=== PATIENT | female | born 1980 | race American Indian/Alaskan Native ===

== ENCOUNTER 2018-02-06 14:24 | Emergency (ER) | payer MEDICAID ==
[2018-02-06 14:26] VITALS: RESP 18; BMI 33.4
[2018-02-06] MEDS ORDERED: Sodium Chloride 0.9% 1,000 ML IV STA (14:48)
--- NOTE | 2018-02-06 14:58 | ED PDOC ---
Arrival/HPI - General Chief Complaint: Female Genitourinary Time Seen by Provider: 02/06/18 14:25 Historian: Patient - History of Present Illness Narrative History of Present Illness (Text): 02/06/18 14:53 37yo female who present with complaint of crampy abdominal pain and vaginal bleeding x since this morning. States her LMP was December 17 2017. States her home test was inconclusive on Monday. Started having vaginal bleeding this morning. States she came to Emergency department today because she started having cramps, which is unusual with her menstruation. Denies nausea, vomiting, diarrhea, constipation, urinary symptoms, fever, chills, back pain, any other complaint. Past Medical History - Provider Review Nursing Documentation Reviewed: Yes - Psychiatric Hx Substance Use: No Family/Social History - Physician Review Nursing Documentation Reviewed: Yes Family/Social History: Unknown Family HX Smoking Status: Never Smoked Hx Alcohol Use: Yes Frequency of alcohol use: Socially Hx Substance Use: No Allergies/Home Meds Allergies/Adverse Reactions: Allergies No Known Allergies Allergy (Verified 02/06/18 14:34) Home Medications: Home Meds Medication Instructions Recorded Confirmed RX: No Known Home Med 02/06/18 02/06/18 Review of Systems - Physician Review All systems were reviewed & negative as marked: Yes - Review of Systems Constitutional: Normal Eyes: Normal ENT: Normal Respiratory: Normal Cardiovascular: Normal Gastrointestinal: Abdominal Pain. absent: Stool Changes, Constipation, Diarrhea, Nausea, Hematochezia, Hematemesis Genitourinary Female: Normal Musculoskeletal: Normal Skin: Normal Neurological: Normal Endocrine: Normal Hemo/Lymphatic: Normal Psychiatric: Normal Physical Exam Vital Signs Reviewed: Yes Vital Signs Temp Pulse Resp BP Pulse Ox 02/06/18 14:25 98.3 F 82 18 149/92 H 100 Temperature: Afebrile Blood Pressure: Normal Pulse: Regular Respiratory Rate: Normal Appearance: Positive for: Well-Appearing, Non-Toxic, Comfortable Pain Distress: None Mental Status: Positive for: Alert and Oriented X 3 - Systems Exam Head: Present: Atraumatic, Normocephalic Pupils: Present: PERRL Extroacular Muscles: Present: EOMI Conjunctiva: Present: Normal Mouth: Present: Moist Mucous Membranes Neck: Present: Normal Range of Motion Respiratory/Chest: Present: Clear to Auscultation, Good Air Exchange. No: Respiratory Distress, Accessory Muscle Use Cardiovascular: Present: Regular Rate and Rhythm, Normal S1, S2. No: Murmurs Abdomen: Present: Normal Bowel Sounds, Other (Soft). No: Tenderness, Distention, Peritoneal Signs, Rebound, Guarding, McBurney's Point Tender, Rovsing's Sign Present Back: Present: Normal Inspection Upper Extremity: Present: Normal Inspection. No: Cyanosis, Edema Lower Extremity: Present: Normal Inspection. No: Edema Neurological: Present: GCS=15, CN II-XII Intact, Speech Normal Skin: Present: Warm, Dry, Normal Color. No: Rashes Psychiatric: Present: Alert, Oriented x 3, Normal Insight, Normal Concentration Medical Decision Making ED Course and Treatment: 02/06/18 19:33 PT presented for stated history. Was comfortable, hemodynamically stable and her abdominal exam was benign. Upreg was negative in Emergency department Result was DW the pt and she was DC home and referred to her PMD. She was treated with Ibuprofen for dysmenorrhea - RAD Interpretation Radiology Orders: 02/06/18 14:47 TRANSVAGINAL [US] Stat - Medication Orders Current Medication Orders: Sodium Chloride (Sodium Chloride 0.9%) 1,000 mls @ 999 mls/hr IV .Q1H1M STA Stop: 02/06/18 15:48 Disposition/Present on Arrival - Present on Arrival Any Indicators Present on Arrival: No History of DVT/PE: No History of Uncontrolled Diabetes: No Urinary Catheter: No History of Decub. Ulcer: No History Surgical Site Infection Following: None - Disposition Have Diagnosis and Disposition been Completed?: Yes Diagnosis: Dysmenorrhea Disposition: HOME/ ROUTINE Disposition Time: 15:50 Patient Plan: Discharge Condition: STABLE Discharge Instructions (ExitCare): Menstrual Cramps (DC) Additional Instructions: Follow up with your doctor Return to Emergency department for any new or worsening symptoms Referrals: Carlotta Arreola MD [Medical Doctor] - Follow up with primary Forms: [employer] ([place])
[2018-02-06 15:31] LABS: PH,URINE 7.5 (4.7-8.0); URINE BILIRUBIN NEGATIVE (NEGATIVE); URINE BLOOD LARGE (NEGATIVE); URINE GLUCOSE (UA) NEGATIVE (NEGATIVE); URINE LEUKOCYTE ESTERASE TRACE Leu/uL (NEGATIVE); URINE PROTEIN 30 mg/dL (<30 mg/dL)
[2018-02-06 15:33] LABS: URINE APPEARANCE TURBID (CLEAR); URINE COLOR YELLOW (YELLOW)
[2018-02-06 15:35] LABS: HCG,QUALITATIVE URINE NEGATIVE (NEGATIVE)
[2018-02-06 15:41] LABS: URINE RBC TNTC /hpf (0-2); URINE WBC 0 - 2 /hpf (0-6)
[2018-02-06 16:16] VITALS: BP 126/83; PULSE 75; TEMP 98; O2SAT 99
== END 2018-02-06 16:02 | disposition home or self-care (01) ==
LOC: MERGE 14:24 → ED 14:24
DX: N94.6 Dysmenorrhea, unspecified (principal)